=== PATIENT | female | born 1980 | race Two or more races ===

== ENCOUNTER 2016-09-16 08:17 | Emergency (ER) | payer MEDICAID ==
[2016-09-16 08:23] VITALS: RESP 16
[2016-09-16] MEDS ORDERED: ACETAMINOPHEN 325 MG TAB PO ONE (08:54)
--- NOTE | 2016-09-16 09:22 | EDPHY ---
H & P Time Seen by Provider: 09/16/16 08:57 HPI/ROS: CHIEF COMPLAINT: CONSTIPATION HISTORY OF PRESENT ILLNESS: This is a 35-year-old female presenting to the emergency department complaining of intermittent abdominal cramping with constipation x3 days. Patient states since she has had her diagnosis of sciatica she has had intermittent constipation, but she got worried when she had some blood in the stool after an episode of hard stool 3 days ago, no blood since then no nausea no vomiting. Patient states she did have a small bowel movement with some straining and nausea today but no blood. Also reporting intermittent headache yesterday but resolving with Tylenol. Patient also complaining of that left sided sciatica flare REVIEW OF SYSTEMS: Constitutional: No fever, no chills. No changes in PO intake Eyes: No discharge. No blurred vision ENT: No sore throat. Cardiovascular: No chest pain, no palpitations. Respiratory: No cough, no shortness of breath. Gastrointestinal: Intermittent abdominal cramping , no vomiting. Genitourinary: No hematuria. Constipation Musculoskeletal: Has left side sciatica Skin: No rashes. Neurological: Intermittent headache, but has resolved Smoking Status: Never smoked Physical Exam: General Appearance: Alert, no distress. Eyes: Pupils equal and round no pallor or injection. ENT, Mouth: Mucous membranes moist. Respiratory: There are no retractions, lungs are clear to auscultation. Cardiovascular: Regular rate and rhythm. Gastrointestinal: Abdomen is soft nondistended, nontender on palpate no masses , bowel sounds normal. Neurological: No focal deficits Skin: Warm and dry, no rashes. Musculoskeletal: Neck is supple nontender. Extremities: symmetrical. Left buttock and hamstring tenderness on palpation pain with full range of motion Psychiatric: Patient is oriented X 3, there is no agitation. Constitutional: Initial Vital Signs Temperature (C) 36.7 C 09/16/16 08:19 Heart Rate 79 09/16/16 08:19 Respiratory Rate 16 09/16/16 08:19 Blood Pressure 105/84 H 09/16/16 08:19 O2 Sat (%) 97 09/16/16 08:19 O2 Delivery Mode Room Air Allergies/Adverse Reactions: No Known Allergies Allergy (Verified 09/16/16 08:19) Home Medications: Medication Instructions Recorded Lidocaine 5% [Lidoderm 5% Patch 1 ea TD DAILY #3 patch 09/16/16 (*)] Medical Decision Making ED Course/Re-evaluation: Discussed ED plan of care: UA with urine test. Lidocaine patch 5% 1015: Discussed urine results, and discharge plan of care. Patient will be following up with her primary care provider on Tuesday, discussed if any symptoms worsen return to the emergency department. Discharge home---> stable, NAD, denies any headache, no abdominal cramping. Differential Diagnosis: Other differential diagnosis considered but not limited to small bowel obstruction, UTI, and sciatica - Data Points Laboratory Results: 09/16/16 09:27 Urine Color YELLOW Urine Appearance HAZY Urine pH 5.0 (5.0-7.5) Ur Specific [place] 1.021 (1.002-1.030) Urine Protein NEGATIVE (NEGATIVE) Urine Ketones NEGATIVE (NEGATIVE) Urine Blood NEGATIVE (NEGATIVE) Urine Nitrate NEGATIVE (NEGATIVE) Urine Bilirubin NEGATIVE (NEGATIVE) Urine Urobilinogen NEGATIVE EU EU (0.2-1.0) Ur Leukocyte Esterase NEGATIVE (NEGATIVE) Urine Glucose NEGATIVE (NEGATIVE) Medications Given: Discontinued Medications Acetaminophen (Tylenol) 650 mg PO EDNOW ONE Stop: 09/16/16 08:55 Last Admin: 09/16/16 08:59 Dose: 650 mg Lidocaine (Lidoderm 5%) 1 ea TD DAILY LARISSA Stop: 03/16/17 08:59 Last Admin: 09/16/16 09:40 Dose: 1 ea Magnesium Citrate (Magnesium Citrate) 300 ml PO ONCE ONE Stop: 09/16/16 10:12 Last Admin: 09/16/16 10:15 Dose: 1 btl Miscellaneous Information (Patch Removal) 1 ea TD DAILY21 LARISSA Stop: 03/15/17 20:59 Last Admin: 09/16/16 09:40 Dose: 1 ea Departure - Departure Disposition: Home, Routine, Self-Care Clinical Impression: Sciatica of left side Constipation Qualifiers: Constipation type: unspecified constipation type Qualified Code(s): K59.00 - Constipation, unspecified Condition: Good Instructions: Constipation (ED), High Fiber Diet (ED) Additional Instructions: 1. Increase water intake, increase fiber 2. Decrease use of ibuprofen 3. Lidocaine patches, heating pad, exercises for sciatica with beneficial Referrals: Caitie Newsome MD [Primary Care Provider] - As per Instructions Prescriptions: Lidocaine 5% [Lidoderm 5% Patch (*)] 1 ea TD DAILY #3 patch
[2016-09-16 09:51] LABS: COLOR YELLOW; LEUKOCYTE ESTERASE,URINE NEGATIVE (NEGATIVE); NITRITE,URINE NEGATIVE (NEGATIVE)
[2016-09-16] MEDS ORDERED: MAGNESIUM CITRATE 300 ML BOTTLE PO ONE (10:11)
[2016-09-16 10:23] VITALS: BP 111/69; PULSE 77; TEMP 97.5; O2SAT 94
[2016-09-16] MEDS ORDERED: PATCH REMOVAL 1 EA PATCH TD SCH (21:00)
[2016-09-17] MEDS ORDERED: LIDOCAINE 5% 1 EA PATCH TD SCH (09:00)
== END 2016-09-16 10:23 | disposition home or self-care (01) ==
DX: K59.00 Constipation, unspecified (principal); M54.32 Sciatica, left side